=== PATIENT | female | born 1985 | race Caucasian/White ===

== ENCOUNTER 2025-07-26 05:51 | Day surgery (SDC) | payer BC, MEDICAID, SELFPAY ==
[2025-07-26] VITALS (7 sets, daily range): BP systolic 123–147; BP diastolic 68–79; PULSE 50–69; RESP 16; TEMP 36.2–36.7; O2SAT 98–100; BMI 34.9
--- OUTSIDE RECORDS SUMMARY | 2025-07-26 05:54 | XMS RPT_ITS | CCD ---
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 without diagnosis of hypertension [facility] Diagnosis Well adult exam- Primary Routine general medical examination at a health care facility Elevated LDL cholesterol level Pure hypercholesterolemia Anemia, unspecified type Elevated blood pressure reading without diagnosis of hypertension [facility] Diagnosis Abnormal uterine bleeding (AUB)- Primary Endometrial polyp Polyp of corpus uteri Hemorrhagic cyst of left ovary [facility] Diagnosis Endometrial polyp Polyp of corpus uteri Hemorrhagic cyst of left ovary Iron deficiency anemia, unspecified iron deficiency anemia type Abnormal uterine bleeding Unspecified disorder of menstruation and other abnormal bleeding from female genital tract [facility] Diagnosis Endometrial polyp- Primary Polyp of corpus uteri [facility] Diagnosis Thrombocytosis- Primary Essential thrombocythemia [facility] Diagnosis Abnormal uterine bleeding (AUB)- Primary Endometrial polyp Polyp of corpus uteri * Assessment & Plan Note - Margareth Ayers MD - 07/16/2025 1:04 PM EDT Associated Problem(s): Endometrial polyp documented in this encounter [facility] for referral (narrative)* Diagnostic Procedure Only (Routine) - Pending Review Specialty Diagnoses / Procedures Referred By Talon slaughter Referred To Contact [facility] Diagnoses Encounter for screening mammogram for malignant neoplasm of breast Procedures ROSALES SCREENING W CHANDLER SCREENING DIGITAL BREAST TOMOSYNTHESIS BI SCREENING MAMMOGRAPHY BI 2-VIEW BREAST INC Kayley Maria APRN.CNM [address] [place] [address] [facility] [address] [place] [address] Referral ID Status Reason Start Date Expiration Date Visits Requested Visits Authorized [id number] Pending Review Auto-Generat ed Referral 01/21/2023 02/20/2024 1 1 [facility] for referral (narrative)* Diagnostic Procedure Only (Routine) - Pending Review Specialty Diagnoses / Procedures Referred By Talon slaughter Referred To Contact [facility] Diagnoses Encounter for screening mammogram for breast cancer Procedures ROSALES SCREENING SCREENING MAMMOGRAPHY BI 2-VIEW BREAST INC CAD Go Soler MD [address] [place] [address] [facility] [address] [place] [address] Referral ID Status Reason Start Date Expiration Date Visits Requested Visits Authorized [id number] Pending Review Auto-Generat ed Referral 01/05/2024 02/03/2025 1 1 [facility] for referral (narrative)* Diagnostic Procedure Only (Routine) - Pending Review Specialty Diagnoses / Procedures Referred By Talon slaughter Referred To Contact [facility] Diagnoses Encounter for screening mammogram for malignant neoplasm of breast Procedures ROSALES SCREENING SCREENING MAMMOGRAPHY BI 2-VIEW BREAST INC Go Dorsey MD [address] [place] [address] [facility] [address] [place] [address] Referral ID Status Reason Start Date Expiration Date Visits Requested Visits Authorized [id number] Pending Review Auto-Generat ed Referral 04/10/2024 05/10/2025 1 1 * Consult, Test, Treat (Routine) - Authorized Specialty Diagnoses / Procedures Referred By Talon slaughter Referred To Contact General Surgery Diagnoses Family history of rectal cancer Procedures CONSULT TO GENERAL SURGERY OFFICE/OUTPATIENT [facility] MDM 60 MINUTES Go Soler MD [address] [place] [address] Referral ID Status Reason Start Date Expiration Date Visits Requested Visits Authorized [id number] Authorized PCP Requested Referral 04/10/2024 04/10/2025 1 1 T [facility] for referral (narrative)* Diagnostic Procedure Only (Routine) - Closed Specialty Diagnoses / Procedures Referred By Talon slaughter Referred To Contact [facility] Diagnoses Encounter for screening mammogram for breast cancer Procedures ROSALES SCREENING SCREENING MAMMOGRAPHY BI 2-VIEW BREAST INC Go Dorsey MD [address] [place] [address] [facility] [address] [place] [address] Referral ID Status Reason Start Date Expiration Date V isits Requested Visits Authorized [id number] Closed Auto-Generate d Referral 01/05/2024 02/03/2025 1 1 [facility] for visit Narrative* Diagnostic Procedure Only (Routine) - Closed Specialty Diagnoses / Procedures Referred By Contac t Referred To Contact [facility] Diagnoses Encounter for screening mammogram for breast cancer Procedures ROSALES SCREENING SCREENING MAMMOGRAPHY BI 2-VIEW BREAST INC CAD Go Soler MD [address] [place] [address] [facility] [address] [place] [address] Referral ID Status Reason Start Date Expiration Date V isits Requested Visits Authorized [id number] Closed Auto-Generate d Referral 01/05/2024 02/03/2025 1 1 [facility] N[facility]* Diagnostic Procedure Only (Routine) - Closed Specialty Diagnoses / Procedures Referred By Talon slaughter Referred To Contact [facility] Diagnoses Abnormal uterine bleeding (AUB) Procedures PELVIC US WHI US PELVIC NONOBSTETRIC REAL-TIME IMAGE COMPLETE Kayley Neville APRN.CN [address] [place] [address] Phone: tel: fax: [facility] [address] [place] [address] Referral ID Status Reason Start Date Expiration Date V isits Requested Visits Authorized [id number] Closed Auto-Generate d Referral 03/19/2025 03/19/2026 1 1 [facility] Summary Purpose Family History No Family History Records FoundNo Family History Records Found Advance Directives No Advanced Directives Records FoundNo Advanced Directives Records Found Additional Source Comments Goals (unrecognized section and content) Goals may be documented in a n alternate section Source Comments (unrecognize d section and content) In the event this informatio n is protected by the Federal Confidentiality of Alcohol and Drug Abuse Patient Records regulations: The Federal rules restrict any use of the information to criminally investigate or prosecute any alcohol or drug abuse patient.[facility] the event this information is protected by the Federal Confidentiality of Alcohol and Drug Abuse Patient Records regulations: The Federal rules restrict any use of the information to criminally investigate or prosecute any alcohol or drug abuse patient.[facility] HospitalIn the event this information is protected by the Federal Confidentiality of Alcohol and Drug Abuse Patient Records regulations: The Federal rules restrict any use of the information to criminally investigate or prosecute any alcohol or drug abuse patient.[facility] HospitalIn the event this information is protected by the Federal Confidentiality of Alcohol and Drug Abuse Patient Records regulations: The Federal rules restrict any use of the information to criminally investigate or prosecute any alcohol or drug abuse patient.[facility] HospitalIn the event this information is protected by the Federal Confidentiality of Alcohol and Drug Abuse Patient Records regulations: The Federal rules restrict any use of the information to criminally investigate or prosecute any alcohol or drug abuse patient.[facility] HospitalIn the event this information is protected by the Federal Confidentiality of Alcohol and Drug Abuse Patient Records regulations: The Federal rules restrict any use of the information to criminally investigate or prosecute any alcohol or drug abuse patient.[facility] HospitalIn the event this information is protected by the Federal Confidentiality of Alcohol and Drug Abuse Patient Records regulations: The Federal rules restrict any use of the information to criminally investigate or prosecute any alcohol or drug abuse patient.[facility] HospitalIn the event this information is protected by the Federal Confidentiality of Alcohol and Drug Abuse Patient Records regulations: The Federal rules restrict any use of the information to criminally investigate or prosecute any alcohol or drug abuse patient.[facility] HospitalIn the event this information is protected by the Federal Confidentiality of Alcohol and Drug Abuse Patient Records regulations: The Federal rules restrict any use of the information to criminally investigate or prosecute any alcohol or drug abuse patient.[facility] HospitalIn the event this information is protected by the Federal Confidentiality of Alcohol and Drug Abuse Patient Records regulations: The Federal rules restrict any use of the information to criminally investigate or prosecute any alcohol or drug abuse patient.[facility] HospitalIn the event this information is protected by the Federal Confidentiality of Alcohol and Drug Abuse Patient Records regulations: The Federal rules restrict any use of the information to criminally investigate or prosecute any alcohol or drug abuse patient.[facility] HospitalIn the event this information is protected by the Federal Confidentiality of Alcohol and Drug Abuse Patient Records regulations: The Federal rules restrict any use of the information to criminally investigate or prosecute any alcohol or drug abuse patient.[facility] HospitalIn the event this information is protected by the Federal Confidentiality of Alcohol and Drug Abuse Patient Records regulations: The Federal rules restrict any use of the information to criminally investigate or prosecute any alcohol or drug abuse patient.[facility] HospitalIn the event this information is protected by the Federal Confidentiality of Alcohol and Drug Abuse Patient Records regulations: The Federal rules restrict any use of the information to criminally investigate or prosecute any alcohol or drug abuse patient.[facility] HospitalIn the event this information is protected by the Federal Confidentiality of Alcohol and Drug Abuse Patient Records regulations: The Federal rules restrict any use of the information to criminally investigate or prosecute any alcohol or drug abuse patient.[facility] HospitalIn the event this information is protected by the Federal Confidentiality of Alcohol and Drug Abuse Patient Records regulations: The Federal rules restrict any use of the information to criminally investigate or prosecute any alcohol or drug abuse patient.[facility] HospitalIn the event this information is protected by the Federal Confidentiality of Alcohol and Drug Abuse Patient Records regulations: The Federal rules restrict any use of the information to criminally investigate or prosecute any alcohol or drug abuse patient.[facility] HospitalIn the event this information is protected by the Federal Confidentiality of Alcohol and Drug Abuse Patient Records regulations: The Federal rules restrict any use of the information to criminally investigate or prosecute any alcohol or drug abuse patient.[facility] HospitalIn the event this information is protected by the Federal Confidentiality of Alcohol and Drug Abuse Patient Records regulations: The Federal rules restrict any use of the information to criminally investigate or prosecute any alcohol or drug abuse patient.[facility] HospitalIn the event this information is protected by the Federal Confidentiality of Alcohol and Drug Abuse Patient Records regulations: The Federal rules restrict any use of the information to criminally investigate or prosecute any alcohol or drug abuse patient.[facility] HospitalIn the event this information is protected by the Federal Confidentiality of Alcohol and Drug Abuse Patient Records regulations: The Federal rules restrict any use of the information to criminally investigate or prosecute any alcohol or drug abuse patient.[facility] HospitalIn the event this information is protected by the Federal Confidentiality of Alcohol and Drug Abuse Patient Records regulations: The Federal rules restrict any use of the information to criminally investigate or prosecute any alcohol or drug abuse patient.[facility] Reason for Visit (unrecogniz ed section and content) Reason Comments Yearly Exam Reason Comments Poison barbra Reason Onset Date Comments Lab Orders 03/31/2024 Reason Comments Lab orders for physical Reason Comments Rash Poison Barbra x 6 days all over body Reason Comments Physical Reason Comments Results Reason Comments Well Woman Reason Comments Yearly Exam Reason Comments Follow Up Reason Comments Schedule Surgery Reason Comments Menstrual Problem Care Teams (unrecognized sec tion and content) Occupational Therapist Per Diem Relationship Specialty Start Date End Date Go Soler MD [address] [place], [place] [id number] PCP - General Family Medicine 11/19/16 Occupational Therapist Per Diem Relationship Specialty Start Date End Date Go Soler MD [address] [place], [place] [id number] PCP - General Family Medicine 11/19/16 Occupational Therapist Per Diem Relationship Specialty Start Date End Date Go Soler MD [address] [place], [place] [id number] PCP - General Family Medicine 11/19/16 Occupational Therapist Per Diem Relationship Specialty Start Date End Date Go Soler MD [address] [facility] [place] [address] PCP - General Family Medicine 11/19/16 Occupational Therapist Per Diem Relationship Specialty Start Date End Date Go Soler MD [address] [facility] [place] [address] PCP - General Family Medicine 11/19/16 Occupational Therapist Per Diem Relationship Specialty Start Date End Date Go Soler MD [address] [place] [address] PCP - General Family Medicine 11/19/16 Occupational Therapist Per Diem Relationship Specialty Start Date End Date Go Soler MD [address] [place] [address] PCP - General Family Medicine 11/19/16 Occupational Therapist Per Diem Relationship Specialty Start Date End Date Go Soler MD [address] [facility] [place] [address] PCP - General Family Medicine 11/19/16 Occupational Therapist Per Diem Relationship Specialty Start Date End Date Go Soler MD [address] [facility] [place] [address] PCP - General Family Medicine 11/19/16 Occupational Therapist Per Diem Relationship Specialty Start Date End Date Go Soler MD [address] [facility] [place] [address] PCP - General Family Medicine 11/19/16 Occupational Therapist Per Diem Relationship Specialty Start Date End Date Go Soler MD [address] [facility] [place] [address] PCP - General Family Medicine 11/19/16 Meg Yanes APRN.COMBER OPERATOR [address] [place] [address] Underground Heavy Equipment Operator Family Medicine 10/09/24 Evita Fay APRN.COMBER OPERATOR [address] [place] [address] Underground Heavy Equipment Operator Family Medicine 10/09/24 Occupational Therapist Per Diem Relationship Specialty Start Date End Date Go Soler MD [address] [place] [place] [address] PCP - General Family Medicine 11/19/16 Meg Yanes APRN.COMBER OPERATOR [address] [place] [address] Underground Heavy Equipment Operator Family Medicine 10/09/24 Evita Fay APRN.COMBER OPERATOR [address] [place] [place] [address] Underground Heavy Equipment Operator Family Medicine 10/09/24 Occupational Therapist Per Diem Relationship Specialty Start Date End Date Go Soler MD [address] [place] [place] [address] PCP - General Family Medicine 11/19/16 Meg Yanes APRN.COMBER OPERATOR [address] [place] [address] Underground Heavy Equipment Operator Family Medicine 10/09/24 Evita Fay APRN.COMBER OPERATOR [address] [place] [address] Underground Heavy Equipment Operator Family Medicine 10/09/24 Occupational Therapist Per Diem Relationship Specialty Start Date End Date Go Soler MD [address] [facility] [place] [address] PCP - General Family Medicine 11/19/16 Meg Yanes APRN.COMBER OPERATOR [address] [place] [address] Underground Heavy Equipment Operator Family Medicine 10/09/24 Evita Fay APRN.COMBER OPERATOR [address] [place] [address] [facility] 10/09/24 Occupational Therapist Per Diem Relationship Specialty Start Date End Date Go Soler MD [address] [place] [address] PCP - General Family Medicine 11/19/16 Meg Yanes APRN.COMBER OPERATOR [address] [place] [address] Underground Heavy Equipment Operator Family Medicine 10/09/24 Evita Fay APRN.COMBER OPERATOR [address] [place] [address] [facility] 10/09/24 Occupational Therapist Per Diem Relationship Specialty Start Date End Date Go Soler MD [address] [place] [address] PCP - General Family Medicine 11/19/16 Meg Yanes APRN.COMBER OPERATOR [address] [place] [address] Underground Heavy Equipment Operator Family Medicine 10/09/24 Evita Fay APRN.COMBER OPERATOR [address] [place] [address] [facility] 10/09/24 Occupational Therapist Per Diem Relationship Specialty Start Date End Date Go Soler MD [address] [facility] [place] [address] [phone] PCP - General Family Medicine 11/19/16 Meg Yanes JUKE BOX MECHANIC.COMBER OPERATOR [address] [place] [address] Underground Heavy Equipment Operator Family Medicine 10/09/24 Evita Fay JUKE BOX MECHANIC.COMBER OPERATOR [address] [place] [address] [facility] 10/09/24 Occupational Therapist Per Diem Relationship Specialty Start Date End Date Go Soler MD [address] [place] [address] PCP - General Family Medicine 11/19/16 Meg Yanes JUKE BOX MECHANIC.COMBER OPERATOR [address] [place] [address] Underground [facility] 10/09/24 Evita Fay JUKE BOX MECHANIC.COMBER OPERATOR [address] [place] [address] Underground [facility] 10/09/24 Occupational Therapist Per Diem Relationship Specialty Start Date End Date Go Soler MD [address] [place] [address] PCP - General Family Medicine 11/19/16 Meg Yanes, JUKE BOX MECHANIC.COMBER OPERATOR [address] [place] [address] Underground Heavy Equipment Operator Family Medicine 10/09/24 Evita Fay JUKE BOX MECHANIC.COMBER OPERATOR [address] [place], [place] [address] [facility] 10/09/24 Occupational Therapist Per Diem Relationship Specialty Start Date End Date Go Soler MD [address] [place], [place] [id number] PCP - General Family Medicine 11/19/16 Meg Yanes APRN.COMBER OPERATOR [address] [place], [place] [id number] [facility] 10/09/24 Evita Fay JUKE BOX MECHANIC.COMBER OPERATOR [address] [place], [place] [id number] [facility] 10/09/24 INFORMATION SOURCE (unrecogn ized section and content) DATE CREATED AUTHOR 07/17/2025 [facility] DATE CREATED AUTHOR AUTHOR'S ORGANIZ ATION 07/25/2025 [facility] FOR RECORDS PERTAINING TO PATIENTS WHO ARE OR HAVE BEEN ENROLLED IN A CHEMICAL DEPENDENCY/SUBSTANCEABUSE PROGRAM, SOME INFORMATION MAY BE OMITTED. This clinical summary was aggregated from multiple sources. Caution should be exercised in using it in the provision of clinical care. This summary normalizes information from multiple sources, and as a consequence, information in this document may materially change the coding, format and clinical context of patient data. In addition, data may be omitted in some cases. CLINICAL DECISIONS SHOULD BE BASED ON THE PRIMARY CLINICAL RECORDS. [employer] provides no warranty or guarantee of the accuracy or completeness of information in this document.
[2025-07-26 06:26] LABS: Internal QC Validated? YES +Cl - CLEAR BKGD; Pregnancy, Urine Negative Negative
[2025-07-26 06:27] LABS: Record Kit Lot#,Urine Preg 0000964736
--- NOTE | 2025-07-26 06:37 | PRE.ANES_ITS ---
ASA Classification* ASA Classification ASA Classification: 2 Assessment & Plan Anesthesia* Anesthesia Assessment Anesthesia Assessment: Discussed sedation and/or anesthesia options, risks, benefits, and alternatives with patient/parents/legal guardian/POA. Questions invited. The patient/parents/legal guardian/POA seems to understand and agrees to proceed with anesthesia plan. Reviewed the physical assessment, medical history, allergy history and patient home medications list prior to surgery/procedure/anesthetic and documented any changes. Performed airway and anesthesia risk assessments. Anesthesia Type Anesthesia Type: MAC History Source History Obtained from:: Patient and Chart Anesthesia Focused Assessment* Temperature: 98.1 F Pulse Rate: 68 Blood Pressure: 147/79 Respiratory Rate: 16 Pulse Ox: 98 Oxygen Delivery Method: Room Air Airway Assessment Mouth opens: >3 cm Mallampati Score: III Teeth Condition: Caps/Crowns (Left lower molar has a crown.) and Missing (Patient has a couple missing teeth. 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 When Was Last Pacemaker Check QUESTION #4 FULL TEXT: You/Your Family Experience fever (hyperthermia) with Anesthesia Last Oral Intake Last Oral intake: Last Oral Intake NPO since Meds taken in AM with sips of water? Meds patient instructed to take am of surgery Any additional information?: Yes NPO since: 00:00 Meds taken in AM with sips of water?: No PONV PONV - television installer helper: PONV - television installer helper Female Yes 07/17/25 08:54 HX of Motion Sickness No 07/17/25 08:54 HX of N/V After Surgery No 07/17/25 08:54 Non-Smoker Yes 07/17/25 08:54 Duration of Surgery greater No 07/17/25 08:54 than 60 minutes Number of Risk Factors 2 07/17/25 08:54 PONV Score Moderate Risk 07/17/25 08:54 Height & Weight Height & Weight: Anesthesia: Height & Weight Height 5 ft 5 in 09/03/14 14:50 Respiratory Assessment Respiratory Assessment - television installer helper: Respiratory Tract Infection Hx - television installer helper Hx Respiratory Tract Infection No 07/17/25 08:54 STOP Sleep Apnea STOP Sleep Apnea - television installer helper: STOP Sleep Apnea - television installer helper Hx Hypertension No 07/17/25 08:54 Hx Sleep Apnea No 07/17/25 08:54 CPAP BIPAP Do you snore loudly (louder No 07/17/25 08:54 than talking or can be heard Do you often feel tired/ No 07/17/25 08:54 fatigued/ sleepy during daytime? Has anyone observed you stop No 07/17/25 08:54 breathing during sleep? STOP Results Negative 07/17/25 08:54 QUESTION #5 FULL TEXT : Do you snore loudly (louder than talking or can be heard through closed doors)? 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 Specify any problems Hx of Preganancy in last 3 No 07/17/25 08:54 Months Nurse Filling Out Transfusion LOUISE 07/17/25 08:54 & Questions: Date: 07/17/25 07/17/25 08:54 Time: 08:56 07/17/25 08:54 Patient unable to answer at this time (ie. confused, unrespo /Reproduction History /Reproductive History - television installer helper: /Reproductive Hx- television installer helper Hx Now No 07/17/25 08:54 Gestational Age (in weeks): EDC: Hx Hx Para Hx Section SAB No 07/17/25 08:54 Active Medications Active Medications: Current Medications Generic Name Dose Route Start Last Admin Trade Name Freq PRN Reason Stop Dose Admin Acetaminophen 1,000 mg 07/26/25 07:30 Acetaminophen 500 Mg Tablet PO 07/26/25 07:31 PREOP ONE Lactated Ringer's 1,000 mls @ 15 mls/hr 07/26/25 06:15 IV .Q48H SILVIA Ketorolac Tromethamine 30 mg 07/26/25 07:30 Ketorolac 30 Mg/Ml Syringe IV 07/26/25 07:31 PREOP ONE PFSH Medical History Normal vaginal delivery Wears glasses Low iron Non-smoker Home Medications ?Medication ?Instructions ?Recorded ?Last Taken ?Type cetirizine 10 mg tablet (24Hour 10 mg PO DAILY PRN all ergy symptoms 07/17/25 Unknown History Allergy) cholecalciferol (vitamin D3) 25 25 mcg PO DAILY Unknown History mcg (1,000 unit) capsule (Vitamin D3) fluticasone propionate 50 1 spray intranasal DAILY PRN 07/17/25 Unknown History mcg/actuation nasal allergy symptoms spray,suspension (Flonase Allergy Relief) iron bisglycinate chelate 30 mg PO QODAY 07/17/25 Unkn own History lactobacillus combination no.4 3 3,000 mmu cells PO DA GARRY 07/17/25 Unknown History billion cell capsule (Probiotic) multivitamin 1 tab PO DAILY 07/17/25 Unkn own History omega 3 350 mg-dha 235 mg-epa 90 1 cap PO .qd 07/17/25 Unknown History mg-fish oil 597 mg capsule,delay rel (Holley-3) Allergy/AdvReac Type Severity Reaction Status Date / Time Environmental Allergies: Allergy Intermediate Itching Verified 07/26/25 06:35 Uncoded Milk Containing Products Allergy Intermediate Other Verified 07/26/25 06:35 (Dairy) Social History Smoking Status: Never smoker Review of Systems (Anesthesia) ROS Narrative System reviewed and no additional complaints, except as documented.
[2025-07-26] MEDS: Lactated Ringers 1,000 ML 15 ML IV (06:41)
[2025-07-26] MEDS: Ketorolac 30 MG/ML Syringe IV (06:43)
--- NOTE | 2025-07-26 07:30 | EMB_PTH ---
PATIENT: JESSICA LOAIZA [place] [facility] [place][id number] AGE/SX: 40/F ROOM: RE07/26/[address]: Dr. Mira Deleon MD : 1985 BED: DIS: 07/26/2025 SPEC #: [id number] RECD: 07/26/25 09:29 STATUS: LEN REVic #: [id number] LUCAS: 07/26/25 07:[address]: Mira Deleon DEPT: SURGICAL PATHOLOGY RECD BY: Saul Peng ENTERED: 07/26/25 13:54 SP TYPE: ENDOM BX/C OTHR DR: Dr. Go Soler MD Tissues: A - Endometrium, NOS Procedures: Surgery Specimen Level IV HEADER OPERATION: Hysteroscopy, D&C, polyp resection with Symphion PRE-OP DIAGNOSIS: Abnormal uterine bleeding, endometrial polyp TISSUE SUBMITTED: A- Endometrial curettings and endometrial polyp MICROSCOPIC DIAGNOSIS A. Endometrium, curettage: * Fragments of proliferative endometrium and benign myometrium. MICROSCOPIC DESCRIPTION Slides are reviewed. GROSS DESCRIPTION A. Received in formalin labeled with the patient's name and date of . Designated as endometrial curettings and endometrial polyp is a 4.0 x 3.2 x 0.6 cm aggregate of rowe-pink to red, irregular tissue fragments. Entirely submitted in 3 cassettes. RI 07/26/2025 CPT:06623
[2025-07-26] MEDS: Midazolam 2 MG/2 ML Syringe IV (07:38)
[2025-07-26] MEDS: fentaNYL 100 MCG/2 ML Ampul IV (07:42)
--- NOTE | 2025-07-26 07:42 | PCM.HP.BLA ---
History and Physical Date of Admission: 07/26/25 Here for hysteroscopy D&C and polyp resectio for AUB and possible endometrial polyp, past surg history-none meds adn allergies reviewed ROS_ no fevers, chil,s CP or sob PE- lungs CTAB heart s1 s2 RRR general- awake, alert, NAD office vitals 144/82, pulse 76 we 96.2 kg and pulseox 98 % room air on 07/16/25 Assessment & Plan Assessment/Plan (1) Abnormal uterine bleeding (AUB): (2) Endometrial polyp: PLAN: r/b/a/p for surgery reviewed, questions answered an dshe desires to proceed
[2025-07-26] MEDS: Lidocaine 1% /Epi 1:100 (20ml) 20 ML Vial (07:54)
--- NOTE | 2025-07-26 08:18 | PCM.OPRPT ---
Operative Report (Standard) Operative Information Date of Procedure: 07/26/25 Pre-Operative Diagnosis: AUB, endometrial polyp Post-Operative Diagnosis: same Surgery/Procedure Performed: Hysteroscopy D&C with polyp resection mastic man: No Type of Anesthesia: MAC/Supplemental/Local RN Documented Start/Stop Times: Operation Date: 07/26/25 07:30 Case Time Into Pre-Op 07/26/25 06:02 Out of Pre-Op 07/26/25 07:33 Anesthesia Start 07/26/25 07:36 Into Room 07/26/25 07:36 Procedure Start 07/26/25 07:54 Procedure End 07/26/25 08:08 Procedure Start Time: 07:54 Procedure Stop Time: 08:08 Select all DRAINS/GRAFTS/IMPLANTS that apply: None Estimated Blood Loss: 10 cc Fluids Replaced: 1000 cc Specimen collected: Yes Description of specimen(s) removed: endometrial polyp and curettings Description of surgery: The patient was taken to the OR where she was prepped and draped in dorsal lithotomy position. The weighted speculum was placed in the vagina and the anterior lip of the cervix was grasped with a single-tooth tenaculum. A paracervical block was administered with 1% lidocaine with 1-100,000 epinephrine solution. The cervix was dilated serially with Hegar dilators. The Symphion hysteroscope was placed into the uterine cavity and the above findings were noted. Bilateral tubal ostia were identified. The Symphion resection device was inserted. The polyp was removed in its entirety and then a visual D&C was done over the endometrial cavity.. The instruments were removed from the vagina. The specimen was handed off and sent to pathology. All sponge and needle counts were correct. Vaginal sweep was performed by me. The patient was awakened and taken to the recovery room in stable condition. The hysteroscopic fluid deficit was calculated to be 750 cc of normal saline Surgical Findings: polyp at fundus of uterus, normal tubal ostia, normal cervix and vagina. proliferative endometrium, no other focal abnormalities Complications Complications: No Admit VTE Documentation VTE Present on Admission: No VTE Mechan Device Prophylaxis: SCD's VTE Pharm Prophylaxis ordered?: No Reason prophylaxis not ordered: Procedure Not Indicated
--- NOTE | 2025-07-26 08:23 | DCINST_ITS ---
Discharge Instructions DC O2, CPAP, BIPAP needs Home O2 Discharge instructions: No Dressing / Incision Discharge Activity: [address] Drive (07/27/25) Return to work on:: 07/27/25 May shower in (days): 1 May resume sexual activity in: 1 week Lifting Restrictions: none Dressing / Incision Call your doctor if your incision/area has: Sudden Increased Bleeding and Foul Smelling Discharge Call your doctor if you observe: Fever of 101 or Higher and Using more than 1 pad per hour (for 2 hrs in a row) Follow Up Care Please Follow Up With: Mira Deleon MD When: You do not need a postop appointment. Call [phone] or send a [employer] message with questions or concerns. If you continue to have heavy periods please let us know. Test Results: Test results from this visit will be discussed in further detail at your follow- up appointment, if applicable. Discharge Plan Admission Attending Provider: Mira Deleon Primary Care Provider: Go Soler Instructions Print Language: Hungarian Discharge Orders/Prescriptions Prescriptions: No Action multivitamin Tablet 1 tab PO DAILY iron bisglycinate chelate 29 mg iron capsule 30 mg PO QODAY Probiotic 3 billion cell capsule 3,000 mmu cells PO DAILY Rx Instructions: administer with a meal Ellsworth-3 350 mg-235 mg- 90 mg-597 mg capsule,delayed release(DR/EC) 1 cap PO .qd cetirizine [24Hour Allergy] 10 mg tablet 10 mg PO DAILY PRN (Reason: allergy symptoms) fluticasone propionate [Flonase Allergy Relief] 50 mcg/actuation spray,suspension 1 spray intranasal DAILY PRN (Reason: allergy symptoms) Rx Instructions: administer into each nostril cholecalciferol (vitamin D3) [Vitamin D3] 25 mcg (1,000 unit) capsule 25 mcg PO DAILY Disposition Disposition (needs filled in before D/C Order can be placed): Home, Self Care
--- NOTE | 2025-07-26 08:31 | PCM.POST.ANE ---
Anesthesia: Postop Eval I Current Vital Signs Temperature: 97.2 F Pulse Rate: 69 Blood Pressure: 123/72 Respiratory Rate: 16 Pulse Ox: 100 Oxygen Delivery Method: Room Air Assessment Airway patent: Yes Spontaneous unlabored respirations: Yes Mental status: Awake and Calm nausea: No Vomiting: No Anesthesia Complication: No Fluid Hydration Crystalloid volume administer (ml): 900 Total IV fluid infused: 900 Progress Note Anesthesia document: Postop Eval 1 completed: Yes
--- NOTE | 2025-07-26 10:50 | POSTOPAN2_ITS ---
Anesthesia Postop Eval I Sum Postop Eval Completion status Anesthesia document: Postop Eval 1 completed: Yes Anesthesia Postop Eval I Summary Anesthesia Postop Eval I Summary: Anesthesia Postop Eval I: Assessment Summary Airway patent Yes 07/26/25 08:31 [email or web address] Spontaneous unlabored Yes 07/26/25 08:31 [facility] HE[employer] [facility]IAISON.[email or web address] respirations Mental status Awake,Calm 07/26/25 08:31 [facility] HE[employer] [facility]IN[facility] LIAISON.[email or web address] nausea No 07/26/25 08:31 [facility]IN[facility]IAISON.[email or web address] Vomiting No 07/26/25 08:31 [facility] HE[facility] CLINICAL LIAISON.[email or web address] Anesthesia Postop Eval I: Fluid Summary Crystalloid volume administer 900 07/26/25 08:31 HOME HEALTH CLINICAL LIAISON.[email or web address] (ml) Colloids volume administered ( ml) Blood Product volume administered (ml) Total IV fluid infused 900 07/26/25 08:31 [facility] HE[facility] CLINICAL LIAISON.[email or web address] Anesthesia Postop Eval I: Summary Notes Anesthesia Complication No 07/26/25 08:31 [facility] HE[employer] CLINICAL LIAISON.[email or web address] Anesthesia Complication Comment: Post-operative progress note Anesthesia: Postop Eval II Evaluation Mental status: Awake and Calm Pain Level: 1 nausea: No Vomiting: No Complications Anesthesia Complication: No
--- NOTE | 2025-07-26 10:50 | PCM.POSTANE2 ---
Anesthesia Postop Eval I Sum Postop Eval Completion status Anesthesia document: Postop Eval 1 completed: Yes Anesthesia Postop Eval I Summary Anesthesia Postop Eval I Summary: Anesthesia Postop Eval I: Assessment Summary Airway patent Yes 07/26/25 08:31 [employer]ACH[employer].[email or web address] Spontaneous unlabored Yes 07/26/25 08:31 [employer].[email or web address] respirations Mental status Awake,Calm 07/26/25 08:31 [employer].[email or web address] nausea No 07/26/25 08:31 [employer].GDOTT Vomiting No 07/26/25 08:31 [employer]ACH[employer] HAND.[email or web address] Anesthesia Postop Eval I: Fluid Summary Crystalloid volume administer 900 07/26/25 08:31 [employer] MACH[employer] HAND.GDOTT (ml) Colloids volume administered ( ml) Blood Product volume administered (ml) Total IV fluid infused 900 07/26/25 08:31 [employer] MACH[employer] HAND.GDOTT Anesthesia Postop Eval I: Summary Notes Anesthesia Complication No 07/26/25 08:31 [employer] MACH[employer] HAND.GDOTT Anesthesia Complication Comment: Post-operative progress note Anesthesia: Postop Eval II Evaluation Mental status: Awake and Calm Pain Level: 1 nausea: No Vomiting: No Complications Anesthesia Complication: No
== END 2025-07-26 09:08 | disposition home or self-care (01) ==
LOC: SDC 05:53 → AC 05:54
PROVIDERS: Obstetrics & Gynecology; PCP Family Medicine; Referring Provider Obstetrics & Gynecology; Visit Provider Obstetrics & Gynecology
PROC: 0UB98ZZ Excision of Uterus, Via Natural or Artificial Opening Endoscopic (ICD-10-PCS; CPT 58558; principal; 2025-07-26 07:15)
DX: N84.0 Polyp of corpus uteri (principal); N93.9 Abnormal uterine and vaginal bleeding, unspecified
CPT/HCPCS: 58558; 00952; 81025; 88305; J2405